=== PATIENT | female | born 1990 | race Caucasian/White ===

== ENCOUNTER 2025-01-20 09:48 | Emergency (ER) | payer MEDICAID, OTHER ==
[~2025-01-20] VITALS: Ht 160 cm; Wt 104.3 kg
[2025-01-20] MEDS ORDERED: LEVA15HF6 INH (09:58)
[2025-01-20 10:36] LABS: PLATELET COUNT (AUTO) 443 K/uL (179-408); RED BLOOD CELL COUNT(AUTO) 4.74 MIL/uL (3.63-4.92); RED CELL DISTRIBUTION WIDTH 13.4 % (12.3-17.7); WHITE BLOOD COUNT (AUTO) 7.2 K/uL (3.8-11.8)
[2025-01-20] MEDS: IV NORMAL SALINE 1000 ML BAG IV ONE (10:36)
[2025-01-20 10:57] LABS: CREATININE 0.6 mg/dL (0.6-1.3); SODIUM SERUM 138 mmol/L (136-145); UREA NITROGEN, BLOOD 12 mg/dL (7-18)
[2025-01-20 11:01] VITALS: BP 103/58
[2025-01-20 12:39] VITALS: BP 105/60; O2SAT 98
== END 2025-01-20 12:40 | disposition home or self-care (01) ==
LOC: ER 09:48
DX: R00.2 Palpitations (principal); J45.909 Unspecified asthma, uncomplicated; Z88.0 Allergy status to penicillin; Z60.2 Problems related to living alone
CPT/HCPCS: 99285; 96360; 71045; 80048; 82962; 83735; 84100; 84443; 85025; 84484; 93005; J7040; A4606; A4663